=== PATIENT | male | born 1985 | race Caucasian/White ===

== ENCOUNTER 2019-02-01 10:51 | Emergency (ER) | payer OTHER ==
[~2019-02-01] VITALS: Ht 170.2 cm; Wt 79.5 kg
[2019-02-01 10:54] VITALS: RESP 24; Ht 170.2 cm; Wt 79.5 kg
[2019-02-01] MEDS ORDERED: DIPHTH/TET/ACEL PERTUSS (ADULT) 0.5 ML VIAL IM* ONE (11:30)
[2019-02-01] MEDS ORDERED: HYDROCODONE/APAP (5/325) TAB PO ONE (11:30)
[2019-02-01] MEDS ORDERED: LIDOCAINE 1% (MPF) 5 ML VIAL INJ ONE (11:30)
[2019-02-01] MEDS ORDERED: LIDOCAINE 1% (MDV) 20 ML INJ SC ONE (12:00)
[2019-02-01] MEDS ORDERED: CEFAZOLIN 1 GM INJ IM ONE (12:00)
[2019-02-01] MEDS ORDERED: HYDR-4011 PO (14:22)
[2019-02-01] MEDS ORDERED: IBUP-1542 PO (14:22)
[2019-02-01] MEDS ORDERED: CEPH-443 PO (14:22)
[2019-02-01] MEDS ORDERED: KETOROLAC 60 MG INJ IM STA (14:25)
[2019-02-01 14:44] VITALS: BP 129/91; PULSE 82
--- NOTE | 2019-02-01 15:09 | ERD ---
ER Documentation Chief Complaint Chief Complaint lac on Nayan hatfield 1st and 4th finger HPI 33-year-old male patient with no significant past medical history presents to the ED complaining of thumb and fourth finger injury of the right hand. Patient is right-handed. Patient reports that he sliced his finger with a sharp piece of metal. Denies any fever, chest pain, shortness of breath, nausea, vomiting, sensation, loss of range of motion. ROS All systems reviewed and are negative except as per history of present illness. Medications Home Meds Active Scripts Hydrocodone/Acetaminophen ([place] 5-325 Tablet) 1 Each Tablet, 1 TAB PO Q6H PRN for PAIN, #10 TAB Prov:MELISSA MORA PA-C 02/01/19 Ibuprofen* (Motrin*) 600 Mg Tab, 600 MG PO Q6, #30 TAB Prov:MELISSA MORA PA-C 02/01/19 Cephalexin* (Keflex*) 500 Mg Capsule, 500 MG PO QID for 7 Days, CAP Prov:MELISSA MORA PA-C 02/01/19 PMhx/Soc Medical and Surgical Hx: pt denies Medical Hx, pt denies Surgical Hx History of Surgery: No Hx Neurological Disorder: No Hx Respiratory Disorders: No Hx Cardiac Disorders: No Hx Psychiatric Problems: No Hx Miscellaneous Medical Probl: No Hx Alcohol Use: No Hx Substance Use: No Hx Tobacco Use: No Smoking Status: Never smoker FmHx Family History: No diabetes, No coronary disease Physical Exam Vitals Vital Signs Date Temp Pulse Resp B/P (MAP) Pulse Ox O2 O2 Flow FiO2 Time Delivery Rate 02/01/19 82 129/91 14:44 (104) 02/01/19 98.0 74 24 130/81 98 10:54 (97) Physical Exam Const: [id number], well-nourished. In no acute distress. Head: Atraumatic, normocephalic Eyes: Normal Conjunctiva without injection ENT: Normal external ear, nose and mouth. Neck: Full range of motion. No meningismus. Resp: Clear to auscultation bilaterally. No wheezing, rhonchi, rales, or crackles. No accessory muscle use. No retractions. Cardio: Regular rate and rhythm, no murmurs Skin: No petechiae or rashes Back: No midline tenderness. No CVA tenderness. Ext: No cyanosis, or edema. Cap refill less than 2 seconds. Distal pulses intact bilaterally. 10 cm laceration noted on the dorsal aspect of patient's right thumb, X shaped laceration noted on the volar aspect of patient's right fourth finger. Full range of motion of the DIP, PIP, MCP joints bilaterally. Neur: Awake and alert. Normal gait and coordination. Muscle strength 5/5. Sensation intact bilaterally. Psych: Normal Mood and Affect Results 24 hrs Current Medications Medications Dose Sig/Gisell Start Time Status Last (Trade) Ordered Route PRN Stop Time Admin Dose Reason Admin 1 tab ONCE ONCE 02/01/19 DC 02/01/19 Acetaminophen PO 11:30 02/01/19 11:25 / 11:31 Hydrocodone Bitart ([place] (5/325)) Diphtheria/ 0.5 ml ONCE ONCE 02/01/19 DC 02/01/19 Tetanus/Acell IM* 11:30 02/01/19 11:25 Pertussis 11:31 (Adacel) Lidocaine 5 ml ONCE ONCE 02/01/19 DC (Xylocaine INJ 11:30 02/01/19 1% (Mpf)) 11:31 Cefazolin 1 gm ONCE ONCE 02/01/19 DC 02/01/19 Sodium IM 12:00 02/01/19 11:56 (Ancef) 12:01 Lidocaine 20 ml ONCE ONCE 02/01/19 DC (Xylocaine SC 12:00 02/01/19 1% (Mdv) 20 12:01 ml) Ketorolac 60 mg ONCE STAT 02/01/19 DC 02/01/19 Tromethamine IM 14:25 02/01/19 14:32 (Toradol) 14:27 Procedures/MDM 33-year-old male patient with no significant past medical history presents ED complaining of a right thumb and fourth finger injury. Patient is afebrile and nontoxic-appearing. Patient was given [place] 53 25mg , Toradol 60 mg IM here in the ED with improvement of his pain. Patient gave consent to perform laceration repair. Laceration Repair by me: Anesthesia: 3 cc 1% lidocaine locally Location: [Right thumb and Right 4th Digit] Tendon/Joint/Nerves: No injury Foreign body: None detected after copious irrigation and exploration Technique: Twelve 4-0 Ethilon simple Interrupted Sutures placed for patient's right thumb -there were 3 specific sutures that were placed onto the nail through the nail bed to keep the nail anchored for infection prevention as well as support of patient's nail, as well as sixteen 4- 0 Ethilon simple interrupted sutures for patient's right fourth finger Complexity: No subcutaneous sutures/mucosal repair/edge excision Post Closure Length: [10] cm of right thumb, 7 cm of right 4th finger Patient's bleeding was easily controlled in the department and there is no indication of anemia. Patient is neurovascularly intact. No evidence of compartment syndrome, neurologic injury, vascular injury, open joint, tendon laceration, or foreign body. Patient is appropriate for outpatient follow up. 48 hour wound check. Scar minimization instructions given. Instructed patient to return for suture removal in 10 days. Keflex was prescribed to patient for infection prevention. Instructed patient to return to the ED sooner for any worsening symptoms. Follow up with primary care physician in 1-2 days. Patient's questions were answered. Patient understood and agreed with discharge plan. IMPRESSION: 1. Displaced tuft fracture of the thumb distal phalanx. IMPRESSION: 1. Comminuted mildly displaced fracture of the fourth finger middle phalanx without definite intra-articular extension. Patient is placed in a metal splint for each right thumb and fourth finger injury. Splint Assessment: Neurovascularly intact pre and post splint placement with good fit. She was noted to have a displaced tuft pressure of the thumb distal phalanx as well as a comminuted mildly displaced fracture of the fourth middle finger. Patient was strictly instructed to follow-up with a hand clinic. Patient's extremity symptoms have stabilized while they have been evaluated in the department and are appropriate for outpatient follow up. No evidence of fractures, dislocations, compartment syndrome, neurologic injury, vascular injury, open joint, open fracture, tendon laceration, septic arthritis, osteomyelitis, DVT, foreign body, or other emergent conditions. My supervising physician, Dr. Kothari also evaluated patient at this time and agreed with the management discharge plan. Diagnosis: Hand Injury Discharge medications: [place],Ibuprofen, Keflex Follow up with primary care physician in 1-2 days. Instructed patient to return to the ED sooner for any worsening symptoms. Patient's questions were answered. Patient is hemodynamically stable. Patient understood and agreed with discharge plan. Patient discharged stable. Disclaimer: Inadvertent spelling and grammatical errors are likely due to EHR/dictation software use and do not reflect on the overall quality of patient care. Also, please note that the electronic time recorded on this note does not necessarily reflect the actual time of the patient encounter. Departure Diagnosis: Primary Impression: Hand injury Encounter type: initial encounter Laterality: right Qualified Codes: S69.91XA - Unspecified injury of right wrist, hand and finger(s), initial encounter Condition: Stable Patient Instructions: Fracture, Hand (Open), Laceration, Hand, Laceration, Hand With Possible Nerve Injury (Sutures, Glue) Referrals: PENDING SALE TO [facility] YOU HAVE RECEIVED A MEDICAL SCREENING EXAM AND THE RESULTS INDICATE THAT YOU DO NOT HAVE A CONDITION THAT REQUIRES URGENT TREATMENT IN THE EMERGENCY DEPARTMENT. FURTHER EVALUATION AND TREATMENT OF YOUR CONDITION CAN WAIT UNTIL YOU ARE SEEN IN YOUR DOCTORS OFFICE WITHIN THE NEXT 1-2 DAYS. IT IS YOUR RESPONSIBILITY TO MAKE AN APPOINTMENT FOR FOLOW-UP CARE. IF YOU HAVE A PRIMARY DOCTOR --you should call your primary doctor and schedule an appointment IF YOU DO NOT HAVE A PRIMARY DOCTOR YOU CAN CALL OUR PHYSICIAN REFERRAL HOTLINE AT IF YOU CAN NOT AFFORD TO SEE A PHYSICIAN YOU CAN CHOSE FROM THE FOLLOWING [facility] [address] [facility]. [facility] [address] [facility]. [facility] [address] [facility] [facility] [address] [facility] [address] [facility]. [facility]. [address] [facility]. [facility] YOU HAVE RECEIVED A MEDICAL SCREENING EXAM AND THE RESULTS INDICATE THAT YOU DO NOT HAVE A CONDITION THAT REQUIRES URGENT TREATMENT IN THE EMERGENCY DEPARTMENT. FURTHER EVALUATION AND TREATMENT OF YOUR CONDITION CAN WAIT UNTIL YOU ARE SEEN IN YOUR DOCTORS OFFICE WITHIN THE NEXT 1-2 DAYS. IT IS YOUR RESPONSIBILITY TO MAKE AN APPOINTMENT FOR FOLOW-UP CARE. IF YOU HAVE A PRIMARY DOCTOR --you should call your primary doctor and schedule and appointment IF YOU DO NOT HAVE A PRIMARY DOCTOR YOU CAN CALL OUR PHYSICIAN REFERRAL HOTLINE AT . IF YOU CAN NOT AFFORD TO SEE A PHYSICIAN YOU CAN CHOSE FROM THE FOLLOWING [facility] INSTITUTIONS: [facility] [address] [place] [address] [facility] [address] [place] [address] [facility] [address] [place] [address] [facility] URGENT CARE/SPECIALTIES [facility] Urgent Care 7 a.m.- 11 p.m. Every Day of the Week NO APPOINTMENT OR AUTHORIZATION NEEDED [facility] Hours: Mon-Fri 9:00 AM - 5:00 PM Additional Instructions: Llame al doctor RADHA y delvin cally ROCK PARA DENTRO DE 2-3 HORNE para cally derivacin para andres a un especialista de la mano. Dgale a la secretaria que nosotros le instruimos hacer esta rock.Avise o llame si wilkins condicin se empeora antes de la rock. Regresa aqui si peor o no mejor. WOUND CHECK:CONSULTE A WILKINS MDICO EN 2 claire para andres WILKINS HERIDA. SUTURE REMOVAL:CONSULTE A WILKINS MDICO PARA SACAR WILKINS PUNTOS.PARA LA TERRY 5-6 claire.EN OTRO LUGAR 10 claire. MELISSA MORA PA-C February 01, 2019 15:09
== END 2019-02-01 14:46 | disposition home or self-care (01) ==
LOC: FTE 10:51
DX: S62.521A Displaced fracture of distal phalanx of right thumb, initial encounter for closed fracture (principal); S62.624A Displaced fracture of middle phalanx of right ring finger, initial encounter for closed fracture; W26.8XXA Contact with other sharp object(s), not elsewhere classified, initial encounter; Y92.9 Unspecified place or not applicable; Z23 Encounter for immunization
CPT/HCPCS: 12005; 73140; 90471; 90715; 96372; J0690; J1885; Z7502; Z7610

== ENCOUNTER 2019-02-03 08:40 | Emergency (ER) | payer OTHER ==
[~2019-02-03] VITALS: Ht 172.7 cm; Wt 64.0 kg
[~2019-02-03 08:40] MED LIST: CEPH-443 PO; HYDR-4011 PO; IBUP-1542 PO
[2019-02-03 08:46] VITALS: BP 129/94; PULSE 102; RESP 18; Ht 172.7 cm; Wt 64.0 kg
--- NOTE | 2019-02-03 10:38 | ERD ---
ER Documentation Chief Complaint Chief Complaint pt is bib family for recheck to right hand, lac, fx 2 days ago, +pain HPI 33-year-old male patient who presents for wound check after having a laceration repair to her right and left hand 2 days ago. Since that time is been doing well reporting pain and effectiveness of pain medications. He has no acute complaints at this time. Wound looks good without any signs of infection. ROS All systems reviewed and are negative except as per history of present illness. Medications Home Meds Active Scripts Hydrocodone/Acetaminophen ([place] 5-325 Tablet) 1 Each Tablet, 1 TAB PO Q6H PRN for PAIN, #10 TAB Prov:MELISSA MORA-Radha 02/01/19 Ibuprofen* (Motrin*) 600 Mg Tab, 600 MG PO Q6, #30 TAB Prov:MELISSA MORA-Radha 02/01/19 Cephalexin* (Keflex*) 500 Mg Capsule, 500 MG PO QID for 7 Days, CAP Prov:MELISSA MORA-C 02/01/19 Allergies Allergies: Coded Allergies: No Known Allergy (Unverified , 02/03/19) PMhx/Soc Medical and Surgical Hx: pt denies Medical Hx, pt denies Surgical Hx History of Surgery: No Hx Neurological Disorder: No Hx Respiratory Disorders: No Hx Cardiac Disorders: No Hx Psychiatric Problems: No Hx Miscellaneous Medical Probl: No Hx Alcohol Use: No Hx Substance Use: No Hx Tobacco Use: No Smoking Status: Never smoker FmHx Family History: No diabetes, No coronary disease, No other Physical Exam Vitals Vital Signs Date Temp Pulse Resp B/P (MAP) Pulse Ox O2 O2 Flow FiO2 Time Delivery Rate 02/03/19 98.3 102 18 129/94 98 08:46 (106) Physical Exam Const: No acute distress Head: Atraumatic Eyes: Normal Conjunctiva ENT: Normal External Ears, Nose and Mouth. Neck: Full range of motion. No meningismus. Resp: Clear to auscultation bilaterally Cardio: Regular rate and rhythm, no murmurs Abd: Soft, non tender, non distended. Normal bowel sounds Skin: No petechiae or rashes Back: No midline or flank tenderness Ext: Left hand and right hand lacerations show no signs of infection, still with some erythema and mild swelling, SI LT throughout bilateral hands, moving wiggling all fingers. Neur: Awake and alert Psych: Normal Mood and Affect Procedures/MDM 33-year-old male who presents for wound check after sustaining lacerations to both hands. He has a reassuring examination and is neurovascularly intact. His pain is well controlled. He has been advised to return for suture removal. Advised to follow-up with hand specialist as initially recommended. DISPOSITION PLAN: We discussed follow up with the patient's primary care doctor within 24 to 48 hours. Patient counseled regarding my diagnostic impression and care plan. Prior to discharge all questions answered. Pt agrees with treatment plan and understands strict return precautions. Precautionary instructions provided including instructions to return to the ER if not improving or for any worsening or changing symptoms or concerns. Disclaimer: Inadvertent spelling and grammatical errors are likely due to EHR/dictation software use and do not reflect on the overall quality of patient care. Also, please note that the electronic time recorded on this note does not necessarily reflect the actual time of the patient encounter. Departure Diagnosis: Primary Impression: Follow-up examination for injury Condition: Stable Referrals: [facility] (PCP) Additional Instructions: Call your primary care doctor TOMORROW for an appointment during the next 2-3 days.See the doctor sooner or return here if your condition worsens before your appointment time. Sure to follow-up with a hand surgeon. ECHO FELIPE PA-C February 03, 2019 10:38
== END 2019-02-03 10:19 | disposition home or self-care (01) ==
LOC: FTE 08:40
DX: Z48.01 Encounter for change or removal of surgical wound dressing (principal)
CPT/HCPCS: 99281